=== PATIENT | male | born 1935 | race Caucasian/White ===

== ENCOUNTER 2019-04-05 10:08 | Inpatient (IN) | payer OTHER ==
[~2019-04-05] VITALS: Ht 167.6 cm; Wt 75.0 kg
[~2019-04-05 10:08] MED LIST: RINGERS SOLUTION,LACTATED 1,000 ML IV ONE
[2019-04-05 10:33] LABS: BASOPHILS % (AUTO) 0.7 % (0.0-2.0); HEMATOCRIT 31.7 % (41-53); HEMOGLOBIN 10.2 g/dL (13.5-17.5); LYMPHOCYTES % (AUTO) 11.3 % (22.0-44.0); MEAN CORPUSCULAR HGB CONC 32.2 G/dL (31.0-37.0); MEAN CORPUSCULAR VOLUME 87 fL (80-100); MONOCYTES # (AUTO) 0.5 K/uL (0.1-1.0); MONOCYTES % (AUTO) 6.2 % (2.0-9.0); NEUTROPHILS # (AUTO) 6.8 K/uL (1.8-7.7); NEUTROPHILS % (AUTO) 78.8 % (40.0-70.0); PLATELET COUNT (AUTO) 487 K/uL (150-450); RED BLOOD CELL COUNT(AUTO) 3.65 MIL/uL (4.50-5.90); RED CELL DISTRIBUTION WIDTH 15.9 % (11.5-14.5)
[2019-04-05 10:39] LABS: ANION GAP 6 mmol/L (8-16); CALCIUM, TOTAL 9.8 mg/dL (8.8-10.5); CARBON DIOXIDE 31 mmol/L (22-29); CHLORIDE 99 mmol/L (98-107); CREATININE 0.97 mg/dL (0.60-1.30); GLUCOSE,RANDOM 288 mg/dL (70-110); POTASSIUM 5.3 mmol/L (3.5-5.1); SODIUM SERUM 136 mmol/L (136-145); UREA NITROGEN, BLOOD 17 mg/dL (7-18)
[2019-04-05 10:43] LABS: GLOMERULAR FILTR. RATE CALC > 60 mL/min (>60)
[2019-04-05 10:45] LABS: ALANINE AMINOTRANSFERASE 71 U/L (12-78); ALBUMIN 2.3 g/dL (3.4-5.0); ALKALINE PHOSPHATASE 139 U/L (46-116); ASPARTATE AMINOTRANSFERASE 31 U/L (15-37); BILIRUBIN,TOTAL 0.4 mg/dL (0.1-1.0); TOTAL PROTEIN, SERUM 7.6 g/dL (6.4-8.2)
[2019-04-05 10:48] LABS: INR 1.1 (0.9-1.1); PROTHROMBIN TIME 11.1 SEC (9.4-11.6)
[2019-04-05] MEDS ORDERED: ACETAMINOPHEN 1000 MG/ISO-OSM 100 ML IV ONE (11:38)
[2019-04-05] MEDS ORDERED: HYDR-2924 PO (11:44)
[2019-04-05] MEDS ORDERED: ATOR40TA28 PO (11:44)
[2019-04-05] MEDS ORDERED: GABA-531 PO (11:44)
[2019-04-05] MEDS ORDERED: NIFE30TA5 PO (11:44)
[2019-04-05] MEDS ORDERED: METF-960 PO (11:44)
[2019-04-05] MEDS ORDERED: CARV12 PO (11:44)
[2019-04-05] MEDS ORDERED: DSS100 PO (11:44)
[2019-04-05] MEDS ORDERED: CLOP75TA3 PO (11:44)
[2019-04-05] MEDS ORDERED: TERA2CAP10 PO (11:44)
[2019-04-05] MEDS ORDERED: LOSA50TA64 PO (11:44)
[2019-04-05] MEDS ORDERED: FURO20 PO (11:44)
[2019-04-05] MEDS ORDERED: BUPIVACAINE HCL 0.25% 50 ML VIAL ONE (11:44)
[2019-04-05] MEDS ORDERED: LIDOCAINE/PF 1% 30 ML VIAL ONE (11:44)
[2019-04-05] MEDS ORDERED: CHL25 PO (11:44)
[2019-04-05] MEDS ORDERED: INSLAN SQ (11:44)
[2019-04-05] MEDS ORDERED: PROPOFOL 1% 20 ML VIAL IVP ONE (12:00)
[2019-04-05] MEDS ORDERED: EPHEDrine SULFATE 50 MG/ML VIAL IM ONE (12:00)
[2019-04-05] MEDS ORDERED: ONDANSETRON HCL 4 MG/2 ML VIAL IVP ONE (12:00)
[2019-04-05] MEDS ORDERED: LIDOCAINE/PF 2% 5 ML VIAL INJ ONE (12:00)
[2019-04-05] MEDS ORDERED: KETAMINE HCL 50 MG/ML 10 ML VIAL IVP ONE (12:00)
[2019-04-05] MEDS ORDERED: 0.9% SODIUM CHLORIDE 10 ML VIAL IVP ONE (12:00)
[2019-04-05] MEDS ORDERED: RINGERS SOLUTION,LACTATED 1,000 ML IV ONE (12:57)
[2019-04-05] MEDS ORDERED: OxyCODONE HCL/ACETAMINOPHEN 5-325 MG TABLET PO PRN (13:30)
[2019-04-05] MEDS ORDERED: FentaNYL CITRATE-PF 100 MCG/2 ML VIAL IVP PRN (13:30)
[2019-04-05] MEDS ORDERED: HYDROmorphone 2 MG/ML SYRINGE IVP PRN ×2 (13:30→14:45)
[2019-04-05] MEDS ORDERED: MEPERIDINE-PF 25 MG/ML VIAL IVP PRN (13:30)
[2019-04-05] MEDS ORDERED: ONDANSETRON HCL 4 MG/2 ML VIAL IVP PRN (14:45)
[2019-04-05] MEDS ORDERED: ZOLPIDEM TARTRATE 10 MG TABLET PO PRN (14:45)
[2019-04-05] MEDS ORDERED: BISACODYL 10 MG RECTAL RECTAL SUPPOSITORY PR PRN (14:45)
[2019-04-05] MEDS ORDERED: 0.9% SODIUM CHLORIDE 10 ML SYRINGE IVP PRN (14:45)
[2019-04-05] MEDS ORDERED: ACETAMINOPHEN 325 MG TABLET PO PRN (14:45)
[2019-04-05] MEDS ORDERED: MAGNESIUM HYDROXIDE SUSPENSION 30 ML UDCUP PO PRN (14:45)
[2019-04-05] MEDS ORDERED: HYDROmorphone 2 MG/ML SYRINGE ONE (15:09)
[2019-04-05] MEDS: HYDROmorphone 2 MG/ML SYRINGE IVP PRN ×2 (15:11→15:50)
[2019-04-05 16:39] VITALS: BP 138/72
[2019-04-05 16:53] LABS: BASOPHILS % (AUTO) 0.3 % (0.0-2.0); EOSINOPHILS % (AUTO) 1.3 % (1.0-6.0); HEMOGLOBIN 9.5 g/dL (13.5-17.5); LYMPHOCYTES # (AUTO) 0.9 K/uL (1.0-4.8); LYMPHOCYTES % (AUTO) 8.8 % (22.0-44.0); MEAN CORPUSCULAR HEMOGLOBIN 27.7 pg (26.0-34.0); MEAN CORPUSCULAR HGB CONC 31.7 G/dL (31.0-37.0); MEAN CORPUSCULAR VOLUME 87 fL (80-100); MONOCYTES # (AUTO) 0.4 K/uL (0.1-1.0); MONOCYTES % (AUTO) 4.3 % (2.0-9.0); NEUTROPHILS # (AUTO) 8.5 K/uL (1.8-7.7); PLATELET COUNT (AUTO) 500 K/uL (150-450); RED BLOOD CELL COUNT(AUTO) 3.44 MIL/uL (4.50-5.90); RED CELL DISTRIBUTION WIDTH 16.2 % (11.5-14.5)
[2019-04-05 17:07] LABS: NEUTROPHILS % (AUTO) 85.3 % (40.0-70.0)
[2019-04-05 17:20] LABS: ANION GAP 9 mmol/L (8-16); CALCIUM, TOTAL 9.5 mg/dL (8.8-10.5); CARBON DIOXIDE 30 mmol/L (22-29); CHLORIDE 97 mmol/L (98-107); CREATININE 1.15 mg/dL (0.60-1.30); GLUCOSE,RANDOM 309 mg/dL (70-110); POTASSIUM 4.2 mmol/L (3.5-5.1); SODIUM SERUM 136 mmol/L (136-145); UREA NITROGEN, BLOOD 17 mg/dL (7-18)
[2019-04-05 17:21] LABS: GLOMERULAR FILTR. RATE CALC > 60 mL/min (>60)
[2019-04-05] MEDS ORDERED: DENTURE ADHESIVE 68 GM CREAM DT PRN (17:30)
[2019-04-05] MEDS ORDERED: DEXTROSE 50%-WATER 25 GM/50 ML SYRINGE IVP PRN (18:15)
[2019-04-05] MEDS: INSULIN LISPRO 100 UNITS/ML SQ PRN ×2 (18:25→20:16)
[2019-04-05] MEDS: HEPARIN SODIUM,PORCINE 5,000 UNITS/ML VIAL SQ SCH (18:27)
[2019-04-05 19:10] LABS: GLUCOMETER DEV NAME(LOC) 5S.1; GLUCOSE,POINT OF CARE 323 MG/DL (70-110)
[2019-04-05 19:46] VITALS: BP 96/57
[2019-04-05] MEDS: OXYGEN THERAPY IH SCH (20:19)
[2019-04-05 20:44] LABS: GLUCOMETER DEV NAME(LOC) 5S.1; GLUCOSE,POINT OF CARE 291 MG/DL (70-110)
[2019-04-05 21:05] VITALS: BP 111/62
[2019-04-05] MEDS ORDERED: SODIUM CHLORIDE 0.9% 250 ML IV ONE (21:15)
[2019-04-05 23:17] VITALS: BP 125/63
[2019-04-06] VITALS (8 sets, daily range): BP systolic 131–148; BP diastolic 58–73
[2019-04-06] MEDS: HEPARIN SODIUM,PORCINE 5,000 UNITS/ML VIAL SQ SCH ×3 (00:37→16:59)
[2019-04-06] MEDS: ACETAMINOPHEN 500 MG TABLET PO SCH ×4 (00:54→20:20)
[2019-04-06] MEDS: DOCUSATE SODIUM 100 MG CAPSULE PO SCH ×3 (00:55→20:20)
[2019-04-06] MEDS: HYDROCODONE/ACETAMINOPHEN 5-325 MG TABLET PO PRN (02:19)
[2019-04-06] MEDS ORDERED: HYDROmorphone 2 MG/ML SYRINGE IVP PRN (04:00)
[2019-04-06 05:52] LABS: BASOPHILS % (AUTO) 0.2 % (0.0-2.0); EOSINOPHILS % (AUTO) 0.4 % (1.0-6.0); HEMATOCRIT 26.7 % (41-53); HEMOGLOBIN 8.4 g/dL (13.5-17.5); LYMPHOCYTES # (AUTO) 0.7 K/uL (1.0-4.8); LYMPHOCYTES % (AUTO) 5.9 % (22.0-44.0); MEAN CORPUSCULAR HEMOGLOBIN 27.3 pg (26.0-34.0); MEAN CORPUSCULAR HGB CONC 31.3 G/dL (31.0-37.0); MEAN CORPUSCULAR VOLUME 87 fL (80-100); MONOCYTES # (AUTO) 0.8 K/uL (0.1-1.0); MONOCYTES % (AUTO) 6.9 % (2.0-9.0); NEUTROPHILS # (AUTO) 10.3 K/uL (1.8-7.7); PLATELET COUNT (AUTO) 461 K/uL (150-450); RED BLOOD CELL COUNT(AUTO) 3.06 MIL/uL (4.50-5.90); RED CELL DISTRIBUTION WIDTH 16.1 % (11.5-14.5)
[2019-04-06 05:59] LABS: NEUTROPHILS % (AUTO) 86.6 % (40.0-70.0)
[2019-04-06] MEDS: INSULIN LISPRO 100 UNITS/ML SQ PRN ×4 (06:23→20:19)
[2019-04-06 06:34] LABS: ANION GAP 12 mmol/L (8-16); CALCIUM, TOTAL 9.1 mg/dL (8.8-10.5); CARBON DIOXIDE 27 mmol/L (22-29); CHLORIDE 99 mmol/L (98-107); CREATININE 0.84 mg/dL (0.60-1.30); GLUCOSE,RANDOM 253 mg/dL (70-110); POTASSIUM 4.7 mmol/L (3.5-5.1); SODIUM SERUM 138 mmol/L (136-145); UREA NITROGEN, BLOOD 19 mg/dL (7-18)
[2019-04-06 06:50] LABS: GLOMERULAR FILTR. RATE CALC > 60 mL/min (>60)
[2019-04-06] MEDS: OxyCODONE HCL/ACETAMINOPHEN 5-325 MG TABLET PO PRN ×2 (06:51→13:17)
[2019-04-06] MEDS: PANTOPRAZOLE SODIUM 40 MG DR TABLET PO SCH (10:20)
[2019-04-06] MEDS: INSULIN GLARGINE,HUM.REC.ANLOG 100 UNITS/ML SQ SCH (10:21)
[2019-04-06] MEDS: OXYGEN THERAPY IH SCH (10:26)
[2019-04-06] MEDS: GABAPENTIN 300 MG CAPSULE PO SCH ×2 (16:59→20:20)
[2019-04-06 19:54] LABS: GLUCOMETER DEV NAME(LOC) 5S.2A; GLUCOSE,POINT OF CARE 277 MG/DL (70-110)
[2019-04-06] MEDS: ATORVASTATIN CALCIUM 20 MG TABLET PO SCH (20:20)
[2019-04-06] MEDS: TERAZOSIN HCL 1 MG CAPSULE PO SCH (20:21)
[2019-04-07] VITALS (7 sets, daily range): BP systolic 104–151; BP diastolic 49–66
[2019-04-07] MEDS: HEPARIN SODIUM,PORCINE 5,000 UNITS/ML VIAL SQ SCH (01:45)
[2019-04-07] MEDS: OxyCODONE HCL/ACETAMINOPHEN 5-325 MG TABLET PO PRN ×2 (01:46→06:17)
[2019-04-07 05:14] LABS: GLUCOMETER DEV NAME(LOC) 5S.2A; GLUCOSE,POINT OF CARE 301 MG/DL (70-110)
[2019-04-07] MEDS: ACETAMINOPHEN 500 MG TABLET PO SCH (05:17)
[2019-04-07] MEDS: INSULIN LISPRO 100 UNITS/ML SQ PRN ×4 (05:18→20:49)
[2019-04-07] MEDS: OXYGEN THERAPY IH SCH ×3 (05:29→20:45)
[2019-04-07 05:36] LABS: GLUCOMETER DEV NAME(LOC) 5S.2A; GLUCOSE,POINT OF CARE 303 MG/DL (70-110)
[2019-04-07 06:23] LABS: BASOPHILS % (AUTO) 0.5 % (0.0-2.0); EOSINOPHILS % (AUTO) 1.2 % (1.0-6.0); HEMATOCRIT 21.9 % (41-53); HEMOGLOBIN 7.1 g/dL (13.5-17.5); LYMPHOCYTES # (AUTO) 1.1 K/uL (1.0-4.8); LYMPHOCYTES % (AUTO) 13.2 % (22.0-44.0); MEAN CORPUSCULAR HGB CONC 32.4 G/dL (31.0-37.0); MEAN CORPUSCULAR VOLUME 86 fL (80-100); MONOCYTES # (AUTO) 0.7 K/uL (0.1-1.0); MONOCYTES % (AUTO) 8.9 % (2.0-9.0); NEUTROPHILS # (AUTO) 6.3 K/uL (1.8-7.7); NEUTROPHILS % (AUTO) 76.2 % (40.0-70.0); PLATELET COUNT (AUTO) 381 K/uL (150-450); RED BLOOD CELL COUNT(AUTO) 2.53 MIL/uL (4.50-5.90); RED CELL DISTRIBUTION WIDTH 15.8 % (11.5-14.5)
[2019-04-07] MEDS: GABAPENTIN 300 MG CAPSULE PO SCH ×3 (08:16→20:45)
[2019-04-07] MEDS: PANTOPRAZOLE SODIUM 40 MG DR TABLET PO SCH (08:16)
[2019-04-07] MEDS: DOCUSATE SODIUM 100 MG CAPSULE PO SCH ×2 (08:16→20:45)
[2019-04-07] MEDS: INSULIN GLARGINE,HUM.REC.ANLOG 100 UNITS/ML SQ SCH ×2 (08:17→20:48)
[2019-04-07] MEDS ORDERED: ASPIRIN 81 MG CHEWABLE TABLET PO SCH (09:00)
[2019-04-07 13:59] LABS: GLUCOMETER DEV NAME(LOC) 5S.1; GLUCOSE,POINT OF CARE 283 MG/DL (70-110)
[2019-04-07 13:59] LABS: GLUCOMETER DEV NAME(LOC) 5S.1; GLUCOSE,POINT OF CARE 268 MG/DL (70-110)
[2019-04-07 13:59] LABS: GLUCOMETER DEV NAME(LOC) 5S.1; GLUCOSE,POINT OF CARE 328 MG/DL (70-110)
[2019-04-07 13:59] LABS: GLUCOMETER DEV NAME(LOC) 5S.1; GLUCOSE,POINT OF CARE 362 MG/DL (70-110)
[2019-04-07] MEDS ORDERED: DSSL PO (15:42)
[2019-04-07] MEDS ORDERED: SODIUM PHOS/SODIUM BIPHOS 133 ML ENEMA PR PRN (15:45)
[2019-04-07] MEDS: LACTULOSE 20 GM/30 ML SOLUTION UDCUP PO PRN (16:00)
[2019-04-07] MEDS: ATORVASTATIN CALCIUM 20 MG TABLET PO SCH (20:45)
[2019-04-07] MEDS: TERAZOSIN HCL 1 MG CAPSULE PO SCH (20:45)
[2019-04-07 23:14] LABS: GLUCOMETER DEV NAME(LOC) 5S.1; GLUCOSE,POINT OF CARE 325 MG/DL (70-110)
[2019-04-07 23:19] LABS: GLUCOMETER DEV NAME(LOC) 5S.1; GLUCOSE,POINT OF CARE 301 MG/DL (70-110)
[2019-04-08 04:04] VITALS: BP 129/59
[2019-04-08] MEDS: INSULIN LISPRO 100 UNITS/ML SQ PRN ×4 (06:12→20:51)
[2019-04-08 06:41] LABS: BASOPHILS % (AUTO) 0.5 % (0.0-2.0); EOSINOPHILS % (AUTO) 2.2 % (1.0-6.0); HEMATOCRIT 23.7 % (41-53); HEMOGLOBIN 7.6 g/dL (13.5-17.5); LYMPHOCYTES # (AUTO) 0.8 K/uL (1.0-4.8); LYMPHOCYTES % (AUTO) 10.2 % (22.0-44.0); MEAN CORPUSCULAR HEMOGLOBIN 27.8 pg (26.0-34.0); MEAN CORPUSCULAR VOLUME 87 fL (80-100); MONOCYTES # (AUTO) 0.6 K/uL (0.1-1.0); MONOCYTES % (AUTO) 7.5 % (2.0-9.0); NEUTROPHILS # (AUTO) 6.5 K/uL (1.8-7.7); NEUTROPHILS % (AUTO) 79.6 % (40.0-70.0); PLATELET COUNT (AUTO) 400 K/uL (150-450); RED BLOOD CELL COUNT(AUTO) 2.74 MIL/uL (4.50-5.90); RED CELL DISTRIBUTION WIDTH 15.6 % (11.5-14.5)
[2019-04-08 08:02] VITALS: BP 134/66
[2019-04-08] MEDS: OXYGEN THERAPY IH SCH ×2 (08:52→20:45)
[2019-04-08] MEDS: GABAPENTIN 300 MG CAPSULE PO SCH ×3 (08:52→20:46)
[2019-04-08] MEDS: DOCUSATE SODIUM 100 MG CAPSULE PO SCH ×2 (08:52→20:49)
[2019-04-08] MEDS: PANTOPRAZOLE SODIUM 40 MG DR TABLET PO SCH (08:52)
[2019-04-08] MEDS: INSULIN GLARGINE,HUM.REC.ANLOG 100 UNITS/ML SQ SCH ×2 (08:58→20:51)
[2019-04-08 09:05] LABS: GLUCOMETER DEV NAME(LOC) 5S.1; GLUCOSE,POINT OF CARE 267 MG/DL (70-110)
[2019-04-08 11:24] LABS: GLUCOMETER DEV NAME(LOC) 5S.1; GLUCOSE,POINT OF CARE 294 MG/DL (70-110)
[2019-04-08 11:54] VITALS: BP 132/56
[2019-04-08 15:57] VITALS: BP 133/56
[2019-04-08 19:14] LABS: GLUCOMETER DEV NAME(LOC) 5S.1; GLUCOSE,POINT OF CARE 346 MG/DL (70-110)
[2019-04-08 19:47] VITALS: BP 118/46
[2019-04-08] MEDS: ATORVASTATIN CALCIUM 20 MG TABLET PO SCH (20:46)
[2019-04-08] MEDS: TERAZOSIN HCL 1 MG CAPSULE PO SCH (20:46)
[2019-04-08 23:30] VITALS: BP 138/61
[2019-04-09 03:36] VITALS: BP 135/62
[2019-04-09] MEDS: INSULIN LISPRO 100 UNITS/ML SQ PRN ×4 (06:13→20:37)
[2019-04-09 07:06] LABS: BASOPHILS % (AUTO) 0.3 % (0.0-2.0); EOSINOPHILS % (AUTO) 3.6 % (1.0-6.0); HEMOGLOBIN 7.8 g/dL (13.5-17.5); LYMPHOCYTES # (AUTO) 1.1 K/uL (1.0-4.8); LYMPHOCYTES % (AUTO) 14.1 % (22.0-44.0); MEAN CORPUSCULAR HEMOGLOBIN 27.8 pg (26.0-34.0); MEAN CORPUSCULAR HGB CONC 32.4 G/dL (31.0-37.0); MEAN CORPUSCULAR VOLUME 86 fL (80-100); MONOCYTES # (AUTO) 0.5 K/uL (0.1-1.0); MONOCYTES % (AUTO) 6.8 % (2.0-9.0); NEUTROPHILS # (AUTO) 5.8 K/uL (1.8-7.7); NEUTROPHILS % (AUTO) 75.2 % (40.0-70.0); PLATELET COUNT (AUTO) 433 K/uL (150-450); RED BLOOD CELL COUNT(AUTO) 2.79 MIL/uL (4.50-5.90); RED CELL DISTRIBUTION WIDTH 15.8 % (11.5-14.5)
[2019-04-09 07:15] LABS: ANION GAP -1 mmol/L (8-16); CALCIUM, TOTAL 9.3 mg/dL (8.8-10.5); CARBON DIOXIDE 31 mmol/L (22-29); CHLORIDE 97 mmol/L (98-107); CREATININE 0.81 mg/dL (0.60-1.30); GLUCOSE,RANDOM 275 mg/dL (70-110); POTASSIUM 3.7 mmol/L (3.5-5.1); SODIUM SERUM 127 mmol/L (136-145); UREA NITROGEN, BLOOD 11 mg/dL (7-18)
[2019-04-09 07:20] LABS: GLOMERULAR FILTR. RATE CALC > 60 mL/min (>60)
[2019-04-09 08:01] VITALS: BP 122/57
[2019-04-09] MEDS: PANTOPRAZOLE SODIUM 40 MG DR TABLET PO SCH (08:12)
[2019-04-09] MEDS: DOCUSATE SODIUM 100 MG CAPSULE PO SCH ×2 (08:13→20:22)
[2019-04-09] MEDS: MULTIVITAMINS WITH MINERALS, THERAPEUTIC TABLET PO SCH (08:13)
[2019-04-09] MEDS: GABAPENTIN 300 MG CAPSULE PO SCH ×3 (08:13→20:22)
[2019-04-09] MEDS: ZINC SULFATE 220 MG CAPSULE PO SCH (08:13)
[2019-04-09] MEDS: OXYGEN THERAPY IH SCH (08:13)
[2019-04-09] MEDS: INSULIN GLARGINE,HUM.REC.ANLOG 100 UNITS/ML SQ SCH (08:17)
[2019-04-09] MEDS: OxyCODONE HCL/ACETAMINOPHEN 5-325 MG TABLET PO PRN ×2 (11:10→20:22)
[2019-04-09 11:44] LABS: GLUCOMETER DEV NAME(LOC) 5S.1; GLUCOSE,POINT OF CARE 312 MG/DL (70-110)
[2019-04-09 11:45] LABS: GLUCOMETER DEV NAME(LOC) 5S.1; GLUCOSE,POINT OF CARE 293 MG/DL (70-110)
[2019-04-09 12:00] VITALS: BP 131/61
[2019-04-09 16:07] VITALS: BP 132/54
[2019-04-09 18:49] LABS: GLUCOMETER DEV NAME(LOC) 5S.1; GLUCOSE,POINT OF CARE 375 MG/DL (70-110)
[2019-04-09 19:43] VITALS: BP 123/51
[2019-04-09] MEDS: ATORVASTATIN CALCIUM 20 MG TABLET PO SCH (20:22)
[2019-04-09] MEDS: TERAZOSIN HCL 1 MG CAPSULE PO SCH (20:22)
[2019-04-09] MEDS ORDERED: INSULIN GLARGINE,HUM.REC.ANLOG 100 UNITS/ML SQ SCH (21:00)
[2019-04-10] VITALS: BP 116/55
[2019-04-10] MEDS: OxyCODONE HCL/ACETAMINOPHEN 5-325 MG TABLET PO PRN ×2 (03:01→09:19)
[2019-04-10 03:58] VITALS: BP 132/61
[2019-04-10] MEDS: INSULIN LISPRO 100 UNITS/ML SQ PRN ×4 (06:29→21:30)
[2019-04-10 06:33] LABS: ANION GAP 9 mmol/L (8-16); CALCIUM, TOTAL 9.1 mg/dL (8.8-10.5); CARBON DIOXIDE 28 mmol/L (22-29); CHLORIDE 100 mmol/L (98-107); CREATININE 0.71 mg/dL (0.60-1.30); GLUCOSE,RANDOM 309 mg/dL (70-110); POTASSIUM 3.9 mmol/L (3.5-5.1); SODIUM SERUM 137 mmol/L (136-145); UREA NITROGEN, BLOOD 19 mg/dL (7-18)
[2019-04-10 06:52] LABS: GLOMERULAR FILTR. RATE CALC > 60 mL/min (>60)
[2019-04-10 07:32] VITALS: BP 131/51
[2019-04-10] MEDS: PANTOPRAZOLE SODIUM 40 MG DR TABLET PO SCH (08:56)
[2019-04-10] MEDS: OXYGEN THERAPY IH SCH ×3 (08:56→20:00)
[2019-04-10] MEDS: MULTIVITAMINS WITH MINERALS, THERAPEUTIC TABLET PO SCH (08:56)
[2019-04-10] MEDS: GABAPENTIN 300 MG CAPSULE PO SCH ×3 (08:56→20:15)
[2019-04-10] MEDS: ZINC SULFATE 220 MG CAPSULE PO SCH (08:56)
[2019-04-10] MEDS: DOCUSATE SODIUM 100 MG CAPSULE PO SCH ×2 (08:56→21:00)
[2019-04-10] MEDS: INSULIN GLARGINE,HUM.REC.ANLOG 100 UNITS/ML SQ SCH ×2 (09:03→21:26)
[2019-04-10 09:10] LABS: GLUCOMETER DEV NAME(LOC) 5S.1; GLUCOSE,POINT OF CARE 325 MG/DL (70-110)
[2019-04-10 09:10] LABS: GLUCOMETER DEV NAME(LOC) 5S.1; GLUCOSE,POINT OF CARE 293 MG/DL (70-110)
[2019-04-10 11:21] VITALS: BP 133/76
[2019-04-10 12:16] LABS: GLUCOMETER DEV NAME(LOC) 5S.2A; GLUCOSE,POINT OF CARE 333 MG/DL (70-110)
[2019-04-10 12:16] LABS: GLUCOMETER DEV NAME(LOC) 5S.2A; GLUCOSE,POINT OF CARE 333 MG/DL (70-110)
[2019-04-10 15:21] VITALS: BP 131/55
[2019-04-10] MEDS: HYDROCODONE/ACETAMINOPHEN 5-325 MG TABLET PO PRN (15:57)
[2019-04-10] MEDS: TERAZOSIN HCL 1 MG CAPSULE PO SCH (20:14)
[2019-04-10] MEDS: ATORVASTATIN CALCIUM 20 MG TABLET PO SCH (20:14)
[2019-04-10 20:20] VITALS: BP 130/58
[2019-04-11 00:28] VITALS: BP 132/55
[2019-04-11] MEDS: OxyCODONE HCL/ACETAMINOPHEN 5-325 MG TABLET PO PRN ×3 (01:07→20:47)
[2019-04-11 03:24] LABS: GLUCOMETER DEV NAME(LOC) 5S.1; GLUCOSE,POINT OF CARE 327 MG/DL (70-110)
[2019-04-11 03:24] LABS: GLUCOMETER DEV NAME(LOC) 5S.1; GLUCOSE,POINT OF CARE 349 MG/DL (70-110)
[2019-04-11 03:24] LABS: GLUCOMETER DEV NAME(LOC) 5S.1; GLUCOSE,POINT OF CARE 326 MG/DL (70-110)
[2019-04-11 04:45] VITALS: BP 140/72
[2019-04-11] MEDS: INSULIN LISPRO 100 UNITS/ML SQ PRN ×4 (06:24→20:59)
[2019-04-11 07:17] VITALS: BP 111/53
[2019-04-11] MEDS: OXYGEN THERAPY IH SCH ×2 (08:00→20:54)
[2019-04-11] MEDS: PANTOPRAZOLE SODIUM 40 MG DR TABLET PO SCH (09:00)
[2019-04-11] MEDS: GABAPENTIN 300 MG CAPSULE PO SCH ×3 (09:00→20:47)
[2019-04-11 11:45] VITALS: BP 132/60
[2019-04-11] MEDS: DOCUSATE SODIUM 100 MG CAPSULE PO SCH ×2 (11:47→20:47)
[2019-04-11] MEDS: ASPIRIN 81 MG CHEWABLE TABLET PO SCH (11:47)
[2019-04-11] MEDS: MULTIVITAMINS WITH MINERALS, THERAPEUTIC TABLET PO SCH (11:48)
[2019-04-11] MEDS: ZINC SULFATE 220 MG CAPSULE PO SCH (11:48)
[2019-04-11] MEDS: INSULIN GLARGINE,HUM.REC.ANLOG 100 UNITS/ML SQ SCH ×2 (11:51→20:59)
[2019-04-11 13:25] LABS: GLUCOMETER DEV NAME(LOC) 5S.1; GLUCOSE,POINT OF CARE 294 MG/DL (70-110)
[2019-04-11 13:25] LABS: GLUCOMETER DEV NAME(LOC) 5S.1; GLUCOSE,POINT OF CARE 359 MG/DL (70-110)
[2019-04-11 13:25] LABS: GLUCOMETER DEV NAME(LOC) 5S.1; GLUCOSE,POINT OF CARE 310 MG/DL (70-110)
[2019-04-11] MEDS: LACTULOSE 20 GM/30 ML SOLUTION UDCUP PO PRN (14:58)
[2019-04-11 15:23] VITALS: BP 122/64
[2019-04-11 19:54] LABS: GLUCOMETER DEV NAME(LOC) 5S.1; GLUCOSE,POINT OF CARE 312 MG/DL (70-110)
[2019-04-11 20:37] VITALS: BP 143/66
[2019-04-11] MEDS: ATORVASTATIN CALCIUM 20 MG TABLET PO SCH (20:46)
[2019-04-11] MEDS: TERAZOSIN HCL 1 MG CAPSULE PO SCH (20:47)
[2019-04-12 00:01] VITALS: BP 134/62
[2019-04-12] MEDS: OxyCODONE HCL/ACETAMINOPHEN 5-325 MG TABLET PO PRN ×3 (03:54→21:24)
[2019-04-12 04:40] VITALS: BP 144/56
[2019-04-12] MEDS: INSULIN LISPRO 100 UNITS/ML SQ PRN ×4 (06:25→22:32)
[2019-04-12 06:40] LABS: GLUCOMETER DEV NAME(LOC) 5S.1; GLUCOSE,POINT OF CARE 313 MG/DL (70-110)
[2019-04-12 06:40] LABS: GLUCOMETER DEV NAME(LOC) 5S.1; GLUCOSE,POINT OF CARE 252 MG/DL (70-110)
[2019-04-12 07:19] VITALS: BP 115/57
[2019-04-12] MEDS: ASPIRIN 81 MG CHEWABLE TABLET PO SCH (07:56)
[2019-04-12] MEDS: MULTIVITAMINS WITH MINERALS, THERAPEUTIC TABLET PO SCH (07:56)
[2019-04-12] MEDS: PANTOPRAZOLE SODIUM 40 MG DR TABLET PO SCH (07:56)
[2019-04-12] MEDS: GABAPENTIN 300 MG CAPSULE PO SCH ×3 (07:56→21:55)
[2019-04-12] MEDS: ZINC SULFATE 220 MG CAPSULE PO SCH (07:56)
[2019-04-12] MEDS: DOCUSATE SODIUM 100 MG CAPSULE PO SCH ×2 (07:56→21:00)
[2019-04-12] MEDS: OXYGEN THERAPY IH SCH ×2 (08:00→20:00)
[2019-04-12] MEDS: INSULIN GLARGINE,HUM.REC.ANLOG 100 UNITS/ML SQ SCH ×2 (08:01→22:33)
[2019-04-12 11:19] VITALS: BP 118/60
[2019-04-12 13:34] LABS: GLUCOMETER DEV NAME(LOC) 5S.1; GLUCOSE,POINT OF CARE 246 MG/DL (70-110)
[2019-04-12 13:34] LABS: GLUCOMETER DEV NAME(LOC) 5S.1; GLUCOSE,POINT OF CARE 377 MG/DL (70-110)
[2019-04-12] MEDS: HYDROCODONE/ACETAMINOPHEN 5-325 MG TABLET PO PRN (17:07)
[2019-04-12 18:54] LABS: GLUCOMETER DEV NAME(LOC) 5S.1; GLUCOSE,POINT OF CARE 294 MG/DL (70-110)
[2019-04-12 19:31] VITALS: BP 140/68
[2019-04-12] MEDS: TERAZOSIN HCL 1 MG CAPSULE PO SCH (21:55)
[2019-04-12] MEDS: ATORVASTATIN CALCIUM 20 MG TABLET PO SCH (21:55)
[2019-04-12 23:21] VITALS: BP 123/57
[2019-04-13] MEDS: OxyCODONE HCL/ACETAMINOPHEN 5-325 MG TABLET PO PRN ×2 (01:14→11:17)
[2019-04-13 01:19] LABS: GLUCOMETER DEV NAME(LOC) 5S.1; GLUCOSE,POINT OF CARE 325 MG/DL (70-110)
[2019-04-13 04:23] VITALS: BP 110/57
[2019-04-13] MEDS: INSULIN LISPRO 100 UNITS/ML SQ PRN ×4 (06:19→20:39)
[2019-04-13 07:51] VITALS: BP 123/53
[2019-04-13] MEDS: OXYGEN THERAPY IH SCH (08:00)
[2019-04-13] MEDS: ZINC SULFATE 220 MG CAPSULE PO SCH (08:29)
[2019-04-13] MEDS: GABAPENTIN 300 MG CAPSULE PO SCH ×3 (08:29→20:36)
[2019-04-13] MEDS: ASPIRIN 81 MG CHEWABLE TABLET PO SCH (08:29)
[2019-04-13] MEDS: PANTOPRAZOLE SODIUM 40 MG DR TABLET PO SCH (08:29)
[2019-04-13] MEDS: MULTIVITAMINS WITH MINERALS, THERAPEUTIC TABLET PO SCH (08:29)
[2019-04-13] MEDS: DOCUSATE SODIUM 100 MG CAPSULE PO SCH ×2 (08:29→20:36)
[2019-04-13] MEDS: INSULIN GLARGINE,HUM.REC.ANLOG 100 UNITS/ML SQ SCH ×2 (08:32→20:37)
[2019-04-13 11:51] VITALS: BP 128/62
[2019-04-13 12:45] LABS: GLUCOMETER DEV NAME(LOC) 5S.1; GLUCOSE,POINT OF CARE 347 MG/DL (70-110)
[2019-04-13 12:45] LABS: GLUCOMETER DEV NAME(LOC) 5S.1; GLUCOSE,POINT OF CARE 287 MG/DL (70-110)
[2019-04-13 12:45] LABS: GLUCOMETER DEV NAME(LOC) 5S.1; GLUCOSE,POINT OF CARE 208 MG/DL (70-110)
[2019-04-13] MEDS: HYDROCODONE/ACETAMINOPHEN 5-325 MG TABLET PO PRN ×2 (14:39→20:36)
[2019-04-13 15:59] VITALS: BP 122/59
[2019-04-13 18:05] LABS: GLUCOMETER DEV NAME(LOC) 5S.1; GLUCOSE,POINT OF CARE 334 MG/DL (70-110)
[2019-04-13 19:40] VITALS: BP 148/59
[2019-04-13] MEDS: TERAZOSIN HCL 1 MG CAPSULE PO SCH (20:36)
[2019-04-13] MEDS: ATORVASTATIN CALCIUM 20 MG TABLET PO SCH (20:36)
[2019-04-13 23:14] LABS: GLUCOMETER DEV NAME(LOC) 4E.2; GLUCOSE,POINT OF CARE 274 MG/DL (70-110)
[2019-04-14] MEDS: OxyCODONE HCL/ACETAMINOPHEN 5-325 MG TABLET PO PRN ×3 (00:16→12:28)
[2019-04-14 04:10] VITALS: BP 134/59
[2019-04-14] MEDS: INSULIN LISPRO 100 UNITS/ML SQ PRN ×2 (05:32→12:31)
[2019-04-14 06:35] LABS: GLUCOMETER DEV NAME(LOC) 4E.2; GLUCOSE,POINT OF CARE 224 MG/DL (70-110)
[2019-04-14 06:36] LABS: BASOPHILS % (AUTO) 0.5 % (0.0-2.0); EOSINOPHILS % (AUTO) 7.8 % (1.0-6.0); HEMOGLOBIN 8.6 g/dL (13.5-17.5); LYMPHOCYTES # (AUTO) 1.2 K/uL (1.0-4.8); LYMPHOCYTES % (AUTO) 18.7 % (22.0-44.0); MEAN CORPUSCULAR HEMOGLOBIN 27.5 pg (26.0-34.0); MEAN CORPUSCULAR HGB CONC 31.8 G/dL (31.0-37.0); MEAN CORPUSCULAR VOLUME 86 fL (80-100); MONOCYTES # (AUTO) 0.3 K/uL (0.1-1.0); MONOCYTES % (AUTO) 5.4 % (2.0-9.0); NEUTROPHILS # (AUTO) 4.4 K/uL (1.8-7.7); NEUTROPHILS % (AUTO) 67.6 % (40.0-70.0); PLATELET COUNT (AUTO) 595 K/uL (150-450); RED BLOOD CELL COUNT(AUTO) 3.13 MIL/uL (4.50-5.90); RED CELL DISTRIBUTION WIDTH 16.6 % (11.5-14.5)
[2019-04-14 06:49] LABS: ANION GAP 5 mmol/L (8-16); CALCIUM, TOTAL 9.6 mg/dL (8.8-10.5); CARBON DIOXIDE 33 mmol/L (22-29); CHLORIDE 99 mmol/L (98-107); CREATININE 0.73 mg/dL (0.60-1.30); GLUCOSE,RANDOM 209 mg/dL (70-110); POTASSIUM 3.7 mmol/L (3.5-5.1); SODIUM SERUM 137 mmol/L (136-145); UREA NITROGEN, BLOOD 17 mg/dL (7-18)
[2019-04-14 06:52] LABS: GLOMERULAR FILTR. RATE CALC > 60 mL/min (>60)
[2019-04-14 07:58] VITALS: BP 142/68
[2019-04-14] MEDS: GABAPENTIN 300 MG CAPSULE PO SCH (08:15)
[2019-04-14] MEDS: DOCUSATE SODIUM 100 MG CAPSULE PO SCH (08:15)
[2019-04-14] MEDS: MULTIVITAMINS WITH MINERALS, THERAPEUTIC TABLET PO SCH (08:15)
[2019-04-14] MEDS: PANTOPRAZOLE SODIUM 40 MG DR TABLET PO SCH (08:15)
[2019-04-14] MEDS: ZINC SULFATE 220 MG CAPSULE PO SCH (08:15)
[2019-04-14] MEDS: ASPIRIN 81 MG CHEWABLE TABLET PO SCH (08:16)
[2019-04-14] MEDS: INSULIN GLARGINE,HUM.REC.ANLOG 100 UNITS/ML SQ SCH (08:18)
[2019-04-14 11:23] VITALS: BP 131/59
[2019-04-14 17:15] LABS: GLUCOMETER DEV NAME(LOC) 4E.2; GLUCOSE,POINT OF CARE 184 MG/DL (70-110)
[2019-04-14 17:15] LABS: GLUCOMETER DEV NAME(LOC) 4E.2; GLUCOSE,POINT OF CARE 301 MG/DL (70-110)
[2019-04-14] MEDS ORDERED: INSULIN GLARGINE,HUM.REC.ANLOG 100 UNITS/ML SQ SCH (21:00)
== END 2019-04-14 14:00 | DRG 239 ==
LOC: 4E 10:08 → 5N 16:11 → 4E 04-13 17:40
PROVIDERS: ADMIT Surgery; ATTEND Surgery
PROC: 0Y6H0Z1 Detachment at Right Lower Leg, High, Open Approach (ICD-10-PCS; principal; 2019-04-05 12:00)
DX: E11.52 Type 2 diabetes mellitus with diabetic peripheral angiopathy with gangrene (principal); E43 Unspecified severe protein-calorie malnutrition; G92 Toxic encephalopathy; E87.1 Hypo-osmolality and hyponatremia; I25.10 Atherosclerotic heart disease of native coronary artery without angina pectoris; I10 Essential (primary) hypertension; E78.5 Hyperlipidemia, unspecified; D63.8 Anemia in other chronic diseases classified elsewhere; R62.7 Adult failure to thrive; N40.0 Benign prostatic hyperplasia without lower urinary tract symptoms; K59.00 Constipation, unspecified; E11.65 Type 2 diabetes mellitus with hyperglycemia; L97.529 Non-pressure chronic ulcer of other part of left foot with unspecified severity; G54.6 Phantom limb syndrome with pain; E11.40 Type 2 diabetes mellitus with diabetic neuropathy, unspecified; F01.50 Vascular dementia, unspecified severity, without behavioral disturbance, psychotic disturbance, mood disturbance, and anxiety; Z89.612 Acquired absence of left leg above knee; Z83.3 Family history of diabetes mellitus; Z82.49 Family history of ischemic heart disease and other diseases of the circulatory system; Z79.82 Long term (current) use of aspirin; Z79.4 Long term (current) use of insulin; Z68.26 Body mass index [BMI] 26.0-26.9, adult
CPT/HCPCS: 84132; 86850; 86900; 86901; 88307; 88311; 93005; 97110; 97163; 97167; 97530; 97535; G0378; J0131; J0690; J1170; J1644; J1815; J2405; J2704; J3490; J7050; J7120

== ENCOUNTER 2020-01-19 10:15 | Emergency (ER) | payer OTHER ==
[~2020-01-19] VITALS: Ht 165.1 cm; Wt 95.9 kg
[~2020-01-19 10:15] MED LIST changes: +ATOR40TA28 PO; +CARV12 PO; +CLOP75TA3 PO; +FURO20 PO; +GABA-533 PO; +HYDR-2924 PO; +INSLAN SQ; +INSU100V SQ; +LOSA-88 PO; +NIFE30TA5 PO; +PERCT PO; -RINGERS SOLUTION,LACTATED 1,000 ML IV ONE; +TERA2CAP10 PO
[2020-01-19 10:53] LABS: BASOPHILS % (AUTO) 0.3 % (0.0-2.0); EOSINOPHILS % (AUTO) 0.6 % (1.0-6.0); HEMATOCRIT 34.7 % (41-53); HEMOGLOBIN 11.2 g/dL (13.5-17.5); LYMPHOCYTES # (AUTO) 0.5 K/uL (1.0-4.8); LYMPHOCYTES % (AUTO) 14.5 % (22.0-44.0); MEAN CORPUSCULAR HEMOGLOBIN 28.9 pg (26.0-34.0); MEAN CORPUSCULAR HGB CONC 32.3 G/dL (31.0-37.0); MEAN CORPUSCULAR VOLUME 89 fL (80-100); MONOCYTES # (AUTO) 0.3 K/uL (0.1-1.0); MONOCYTES % (AUTO) 7.7 % (2.0-9.0); NEUTROPHILS # (AUTO) 2.9 K/uL (1.8-7.7); NEUTROPHILS % (AUTO) 76.9 % (40.0-70.0); PLATELET COUNT (AUTO) 228 K/uL (150-450); RED BLOOD CELL COUNT(AUTO) 3.87 MIL/uL (4.50-5.90)
[2020-01-19 11:07] LABS: ANION GAP 10 mmol/L (8-16); CARBON DIOXIDE 28 mmol/L (22-29); CHLORIDE 100 mmol/L (98-107); GLUCOSE,RANDOM 77 mg/dL (70-110); POTASSIUM 3.3 mmol/L (3.5-5.1); SODIUM SERUM 138 mmol/L (136-145); UREA NITROGEN, BLOOD 32 mg/dL (7-18)
[2020-01-19 11:08] LABS: GLOMERULAR FILTR. RATE CALC > 60 mL/min (>60)
[2020-01-19 11:19] LABS: GLUCOSE,POINT OF CARE 104 MG/DL (70-110)
[2020-01-19 11:27] LABS: ALANINE AMINOTRANSFERASE 60 U/L (12-78); ALKALINE PHOSPHATASE 85 U/L (46-116); ASPARTATE AMINOTRANSFERASE 47 U/L (15-37); BILIRUBIN,TOTAL 0.4 mg/dL (0.1-1.0); TOTAL PROTEIN, SERUM 7.6 g/dL (6.4-8.2)
[2020-01-19 12:31] LABS: APPEARANCE,URINE CLEAR (CLEAR); BILIRUBIN,URINE NEGATIVE (NEGATIVE); GLUCOSE, URINE (UA) NEGATIVE (NEGATIVE); KETONES,URINE NEGATIVE (NEGATIVE); LEUKOCYTE ESTERASE ,URINE NEGATIVE (NEGATIVE); NITRATE,URINE NEGATIVE (NEGATIVE); PH,URINE 6.5 (5.0-8.0); PROTEIN,URINE SEE CONFIRM (NEGATIVE)
[2020-01-19 12:33] LABS: BACTERIA,URINE None Seen /HPF (None Seen); OCCULT BLOOD,URINE TRACE (NEGATIVE); RBC,URINE 0-2 /HPF (0-2); SULFOSALICYLIC ACID,URINE 3+ (Negative); WBC,URINE None Seen /HPF (0-5)
[2020-01-19 13:01] VITALS: BP 123/65
[2020-01-19 13:06] LABS: GLUCOSE,POINT OF CARE 113 MG/DL (70-110)
== END 2020-01-19 14:03 | disposition home or self-care (01) ==
LOC: EMS 10:17
DX: E11.649 Type 2 diabetes mellitus with hypoglycemia without coma (principal); I11.0 Hypertensive heart disease with heart failure; I50.9 Heart failure, unspecified; E78.00 Pure hypercholesterolemia, unspecified; Z79.4 Long term (current) use of insulin; Z79.899 Other long term (current) drug therapy
CPT/HCPCS: 82948

== ENCOUNTER → 2020-12-27 | Outpatient (CLI) | payer OTHER ==
[~2020-12-27] MED LIST changes: -CLOP75TA3 PO; +CLOP75TA60 PO; +GABA-1201 PO; -GABA-533 PO; -HYDR-2924 PO; +HYDR50TA36 PO; -LOSA-88 PO; +LOSA50TA37 PO
== END | disposition home or self-care (01) ==
LOC: HBOWC 08:54
PROVIDERS: ATTEND Podiatrist
DX: T81.89XA Other complications of procedures, not elsewhere classified, initial encounter (principal); I25.10 Atherosclerotic heart disease of native coronary artery without angina pectoris; E11.51 Type 2 diabetes mellitus with diabetic peripheral angiopathy without gangrene; I11.0 Hypertensive heart disease with heart failure; I50.9 Heart failure, unspecified; E78.00 Pure hypercholesterolemia, unspecified; Z87.891 Personal history of nicotine dependence; Z79.4 Long term (current) use of insulin; Z79.899 Other long term (current) drug therapy; Z89.611 Acquired absence of right leg above knee; Y83.8 Other surgical procedures as the cause of abnormal reaction of the patient, or of later complication, without mention of misadventure at the time of the procedure; Y92.238 Other place in hospital as the place of occurrence of the external cause
CPT/HCPCS: 99205; 99215